=== PATIENT | male | born 1960 | race Caucasian/White ===

== ENCOUNTER 2018-09-29 06:06 | Day surgery (SDC) | payer BC ==
[2018-09-28 11:54] VITALS: BMI 31.8
[2018-09-29] MEDS ORDERED: DEXAMETHASONE SOD PHOSPHATE 4 MG/1 ML VIAL ONE (07:26)
[2018-09-29] MEDS ORDERED: PROPOFOL 20 ML ONE (07:26)
[2018-09-29] MEDS ORDERED: LIDOCAINE HCL/PF 2% SDV 5ML VIAL ONE (07:26)
[2018-09-29] MEDS ORDERED: SUCCINYLCHOLINE CHLORIDE 200 MG/10 ML VIAL ONE (07:26)
[2018-09-29] MEDS ORDERED: MIDAZOLAM HCL 2 MG/2 ML SINGLE DOSE VIAL ONE (07:26)
[2018-09-29] MEDS ORDERED: BUPIVACAINE HCL/PF 0.5% (5MG/ML) 10 ML VIAL ONE (07:34)
[2018-09-29 08:11] LABS: EPI CELLS 0.9 /HPF (0-5/HPF); URINE APPEARANCE CLEAR; URINE BACTERIA 0.7 /hpf (NEGATIVE); URINE BILIRUBIN NEGATIVE (NEGATIVE); URINE CASTS 2 /lpf (0-8); URINE COLOR YELLOW; URINE GLUCOSE (UA) NEGATIVE (NEGATIVE); URINE KETONE TRACE (NEGATIVE); URINE LEUK ESTERASE NEGATIVE (NEGATIVE); URINE NITRITE NEGATIVE (NEGATIVE); URINE PROTEIN 1+ (NEGATIVE); URINE RBC 4 /hpf (0-4); URINE UROBILINOGEN 0.2 mg/dL (0.2-1.0); URINE WBC 1 /hpf (0-5)
[2018-09-29] MEDS ORDERED: ceFAZolin SODIUM 1 GM VIAL ONE (08:19)
[2018-09-29] MEDS ORDERED: ceFAZolin 2 GRAM PREMIX BAG IVPB ONE (08:20)
[2018-09-29] MEDS ORDERED: ONDANSETRON 4 MG/2 ML VIAL IVPUSH PRN (08:21)
[2018-09-29] MEDS ORDERED: oxyCODONE HCL 5 MG TABLET PO PRN ×2 (08:21)
[2018-09-29] MEDS ORDERED: LACTATED RINGERS SOLUTION 1,000 ML IV SCH (08:30)
[2018-09-29] MEDS ORDERED: BUPIVACAINE HCL/PF 0.5% (5MG/ML) 10 ML VIAL IJ ONE (08:44)
--- NOTE | 2018-09-29 09:04 | HP ---
Satellite PMH - Chief Complaint Chief Complaint: left knee pain History of Present Illness: left knee medial and lateral meniscus tears, OA History Source: Patient Limitations to Obtaining History: No Limitations - Past Medical History Allergies/Adverse Reactions: Allergies Allergy/AdvReac Type Severity Reaction Status Date / Time dog dander Allergy "itchy Verified 09/29/18 06:54 throat" latex Allergy "hives" Verified 09/29/18 06:54 - Current Medications Current Medications: Home Medications Medication Instructions Recorded Candesartan Cilexetil [Atacand] 32 mg PO DAILY 09/28/18 Citalopram Hydrobromide 10 mg PO DAILY 09/28/18 [Citalopram HBr] Furosemide 20 mg PO DAILY 09/28/18 Naproxen Sodium [Aleve] 220 mg PO PRN PRN 09/28/18 Nifedipine [Nifedipine ER] 90 mg PO DAILY 09/28/18 Omeprazole 40 mg PO DAILY 09/28/18 Satellite Physical Exam - Physical Examination Vital Signs: Vital Signs Period Temp Pulse Resp BP Sys/[place] Pulse Ox Last 24 Hr 97.8 F 71 20 148/84 97 General Appearance: Well Nourished ENT: Clear Lung: Clear to auscultation Heart: Regular rate & rhythm Breasts: Soft Abdomen: Soft Extremities: No edema Satellite Impression/Plan - Impression/Plan Impression: left knee medial and lateral meniscus tears, OA Operative Procedure: left knee arhroscopy, partial medial and lateral meniscectomy, debridement chondroplasty Date to be Performed: 09/29/18
[2018-09-29] MEDS ORDERED: oxyCODONE HCL 5 MG TABLET ONE (10:28)
[2018-09-29 14:02] VITALS: BP 130/78; PULSE 70; TEMP 97.8
--- NOTE | 2018-09-30 17:14 | PATH ---
Surgical Pathology Report Patient Name: CHASE MENDES [place]. Rec. #: [id number] /Age/Gender: 1960 (Age: 58) / M Account: [id number] Location: [facility] Taken: 09/29/2018 Received: 09/29/2018 Reported: 09/30/2018 Physicians: Benigno Pizarro M.D. Specimen(s) Received SHAVINGS, LEFT KNEE Clinical History Tear left knee Final Diagnosis KNEE SHAVINGS, LEFT, ARTHROSCOPY: FRAGMENTS OF DENSE FIBROCONNECTIVE TISSUE, ADIPOSE TISSUE, AND REACTIVE SYNOVIUM. 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 Electronically Signed Anni Tidwell M.D. Gross Description Received in formalin, labeled "left knee shavings," is a 5.5 x 5.0 x 0.6 cm. aggregate of nguyen-yellow soft tissue fragments. A insurance follow up representative portion is submitted in one cassette. /09/29/2018 saudi09/29/2018
--- NOTE | 2018-10-12 10:51 | OP ---
DATE OF OPERATION: 09/29/2018 PREOPERATIVE DIAGNOSES: Left knee pain, medial and lateral meniscus tear, and osteoarthritis. POSTOPERATIVE DIAGNOSES: Left knee pain, medial and lateral meniscus tear, and osteoarthritis. PROCEDURE: Left knee arthroscopy, partial medial and lateral meniscectomy, debridement with chondroplasty. SURGEON: Benigno Pizarro MD SECTION MAINTAINER: None. ANESTHESIOLOGIST: James Rodriguez MD, with Alma Rosa Clay CRNA ANESTHESIA: LMA anesthesia with intraarticular injection of 20 mL of 0.5% Marcaine with 1% lidocaine mix. DRAINS: None. COMPLICATIONS: None. SPECIMEN: Arthroscopic shavings. BLOOD LOSS: None. BLOOD GIVEN: None. FLUID REPLACEMENT: 500 mL PlasmaLyte. INDICATION: This patient is a 58-year-old male with preoperative diagnosis of left knee pain, medial and lateral meniscus tear, and osteoarthritis, after understanding the potential risks, complications, alternatives, and benefits of surgical versus nonsurgical treatment, the patient elected to undergo this procedure. DESCRIPTION OF PROCEDURE: The patient was brought into the operating room, peripheral IV placed and IV sedation given. Two g of Ancef were given. LMA anesthesia was induced. Left lower extremity was placed into the C-clamp leg escalante with ample padding throughout. The left lower extremity was prepped and draped in a sterile fashion, elevated, and exsanguinated with Esmarch bandage, and tourniquet inflated to 275 mmHg. A superomedial outflow portal was established. A medial portal was established, and arthroscope was entered to the joint. Using a spinal needle under direct visualization, a medial portal was established, and a diagnostic arthroscopy was performed. The patient was seen to have a complex tear of the medial meniscus with some mild osteoarthritis at the medial femoral condyle and medial tibial plateau. Gentle debridement chondroplasty was performed, and a partial medial meniscectomy was performed with straight basket forceps and curved shaver. Photographs were taken before and after. The intercondylar notch looked good. The ACL looked good. It had the appropriate tension. The lateral compartment was seen to also have some grade 2/grade 3 changes of the lateral femoral condyle and lateral tibial plateau. There were small areas of grade 4 osteoarthritis at the lateral tibial plateau. The patient had a complex tear of the posterior horn and body of the lateral meniscus. This was debrided with the straight basket forceps and the curved shaver. After the partial lateral meniscectomy and debridement chondroplasty were performed, photographs were taken in the lateral compartment. Next, our attention was turned to the patellofemoral joint. Here the patient also had some osteoarthritis and excessive synovitis. This was debrided. After the partial synovectomy and debridement chondroplasty of the patellofemoral joint, the area was copiously irrigated and washed out. All excess saline was removed. The arthroscopy portal was closed with 3-0 nylon suture. Twenty mL of 0.5% Marcaine was introduced into the joint. The area was then washed and dried and covered with Xeroform, 4 x 4 gauze, Webril, and an Dorian bandage. Tourniquet was taken down after total tourniquet time of about 20 minutes. There was no complication during the case. Patient tolerated the procedure well and was brought to the ambulatory recovery room in stable condition. Jonel [id number]
== END 2018-09-29 13:30 | disposition home or self-care (01) ==
LOC: JASU-SURG 06:06
PROVIDERS: ATTEND Orthopaedic Surgery
PROC: 0SBD4ZZ Excision of Left Knee Joint, Percutaneous Endoscopic Approach (ICD-10-PCS; 2018-09-29)
PROC: 0SBD4ZZ Excision of Left Knee Joint, Percutaneous Endoscopic Approach (ICD-10-PCS; principal; 2018-09-29 08:00)
DX: S83.282A Other tear of lateral meniscus, current injury, left knee, initial encounter (principal); S83.242A Other tear of medial meniscus, current injury, left knee, initial encounter; X58.XXXA Exposure to other specified factors, initial encounter; Y93.9 Activity, unspecified; Y92.9 Unspecified place or not applicable; Y99.9 Unspecified external cause status; M17.12 Unilateral primary osteoarthritis, left knee; G47.30 Sleep apnea, unspecified; J45.909 Unspecified asthma, uncomplicated; I10 Essential (primary) hypertension; K21.9 Gastro-esophageal reflux disease without esophagitis
CPT/HCPCS: 81003; 88304-TC; 94760

== ENCOUNTER 2020-04-28 22:33 | Emergency (ER) | payer BC ==
[2020-04-28 22:42] VITALS: TEMP 97.8; BMI 29.1
[2020-04-28 23:41] LABS: BASO % 0.5 % (0-2.0); EOS % 2.3 % (0-4.5); HEMATOCRIT 43.7 % (35.4-49); HEMOGLOBIN 15.1 GM/dL (11.7-16.9); LYMPH % 27.1 % (8-40); MCH 32.5 pg (25.7-33.7); MCHC 34.4 g/dl (32.0-35.9); MEAN CELL VOLUME 94.5 fl (80-96); MEAN PLT VOLUME 9.6 fl (7.5-11.1); MONO % 6.5 % (3.8-10.2); NEUT % 63.6 % (42.8-82.8); PLATELET COUNT 148 K/MM3 (134-434); RBC 4.63 M/mm3 (4.00-5.60); RDW 12.9 % (11.9-15.9); WHITE BLOOD COUNT 8.2 K/mm3 (4.0-10.0)
[2020-04-28 23:45] LABS: PH,URINE 6.5 (5.0-8.0); URINE APPEARANCE CLEAR; URINE BILIRUBIN NEGATIVE (NEGATIVE); URINE COLOR YELLOW; URINE GLUCOSE (UA) NEGATIVE (NEGATIVE); URINE KETONE NEGATIVE (NEGATIVE); URINE LEUK ESTERASE NEGATIVE (NEGATIVE); URINE NITRITE NEGATIVE (NEGATIVE); URINE PROTEIN NEGATIVE (NEGATIVE)
[2020-04-29] LABS: CHLORIDE 110 mmol/L (98-107); POTASSIUM 3.9 mmol/L (3.5-5.1); SODIUM 142 mmol/L (136-145)
[2020-04-29 00:02] LABS: CALCIUM 8.6 mg/dL (8.5-10.1)
[2020-04-29 00:03] LABS: ALBUMIN 3.7 g/dl (3.4-5.0); ANION GAP 7 MMOL/L (8-16); BLOOD UREA NITROGEN 21.2 mg/dL (7-18); CO2 25 mmol/L (21-32); GLUCOSE,RANDOM 98 mg/dL (74-106)
[2020-04-29 00:06] LABS: CREATININE 0.7 mg/dL (0.55-1.3); SGOT/AST 12 U/L (15-37); SGPT/ALT 23 U/L (13-61)
[2020-04-29 00:07] LABS: BILIRUBIN,TOTAL 0.7 mg/dL (0.2-1)
[2020-04-29 00:08] LABS: TOT PROT 6.7 g/dl (6.4-8.2)
[2020-04-29 00:09] LABS: ALK PHOS 70 U/L (45-117)
[2020-04-29] MEDS ORDERED: cloNIDine HCL 0.1 MG TABLET PO ONE (00:16)
[2020-04-29] MEDS ORDERED: cloNIDine HCL 0.1 MG TABLET ONE (00:24)
[2020-04-29] MEDS ORDERED: NIFEdipine 10 MG CAPSULE (FP) PO ONE (01:59)
[2020-04-29] MEDS ORDERED: LOSARTAN POTASSIUM 25 MG TABLET PO ONE (02:00)
[2020-04-29 02:07] VITALS: BP 166/82; PULSE 67
== END 2020-04-29 02:12 | disposition home or self-care (01) ==
LOC: JER 22:33
DX: I16.0 Hypertensive urgency (principal); I10 Essential (primary) hypertension
CPT/HCPCS: 36415; 70450-TC; 80053; 81003; 84484; 85025; 93005; 93010; 99285-25; J0735

== ENCOUNTER 2021-03-06 07:32 | Day surgery (SDC) | payer BC ==
[2021-03-05 13:17] VITALS: BMI 28.5
[2021-03-06 09:38] VITALS: TEMP 97.8
[2021-03-06 09:53] VITALS: BP 128/84; PULSE 67
== END 2021-03-06 09:55 | disposition home or self-care (01) ==
LOC: FASU-ENDO 07:32 → EDBD 08:30 → FASU-ENDO 09:55
PROVIDERS: ATTEND Internal Medicine Gastroenterology
PROC: 3E0H8KZ Introduction of Other Diagnostic Substance into Lower GI, Via Natural or Artificial Opening Endoscopic (ICD-10-PCS; 2021-03-06)
PROC: 0DB98ZX Excision of Duodenum, Via Natural or Artificial Opening Endoscopic, Diagnostic (ICD-10-PCS; 2021-03-06)
PROC: 0DB78ZX Excision of Stomach, Pylorus, Via Natural or Artificial Opening Endoscopic, Diagnostic (ICD-10-PCS; 2021-03-06)
PROC: 0DBP8ZX Excision of Rectum, Via Natural or Artificial Opening Endoscopic, Diagnostic (ICD-10-PCS; principal; 2021-03-06 08:47)
DX: Z12.11 Encounter for screening for malignant neoplasm of colon (principal); K62.1 Rectal polyp; K21.9 Gastro-esophageal reflux disease without esophagitis; K29.70 Gastritis, unspecified, without bleeding; K57.30 Diverticulosis of large intestine without perforation or abscess without bleeding
CPT/HCPCS: 82962; 88305-TC; 88342-TC

== ENCOUNTER 2021-06-17 06:12 | Day surgery (SDC) | payer BC ==
[2021-06-09 16:56] VITALS: BMI 28.7
[2021-06-17] MEDS ORDERED: CEFAZOLIN 2 GM in DEXTROSE 5%-WATER - 50 ML IVPB ONE (06:27)
[2021-06-17] MEDS ORDERED: TRANEXAMIC ACID 1000 MG/10 ML VIAL IVPUSH ONE (06:27)
[2021-06-17] MEDS ORDERED: ceFAZolin SODIUM 1 GM VIAL ONE ×3 (07:07→23:17)
[2021-06-17] MEDS ORDERED: VANCOMYCIN 1,000 MG VIAL (RESTRICTED TO ID ONLY) ONE (07:07)
[2021-06-17] MEDS ORDERED: CELECOXIB 200 MG CAPSULE ONE (07:09)
[2021-06-17] MEDS: CELECOXIB 200 MG CAPSULE PO ONE (07:10)
[2021-06-17] MEDS ORDERED: SODIUM CHLORIDE 0.9% P/F 10 ML VIAL IJ ONE (07:24)
[2021-06-17] MEDS ORDERED: MIDAZOLAM HCL 2 MG/2 ML SINGLE DOSE VIAL ONE (07:24)
[2021-06-17] MEDS ORDERED: BUPIVACAINE LIPOSOME/PF (EXPAREL) 266 MG/20 ML VIAL ONE (07:24)
[2021-06-17] MEDS ORDERED: BUPIVACAINE HCL/PF 0.5% (5MG/ML) 10 ML VIAL ONE (07:24)
[2021-06-17] MEDS ORDERED: ONDANSETRON 4 MG/2 ML VIAL ONE (07:43)
[2021-06-17] MEDS ORDERED: DEXMEDETOMIDINE HCL 200 MCG/2 ML IVPB ONE (07:43)
[2021-06-17] MEDS ORDERED: PROPOFOL 20 ML ONE ×2 (07:52)
[2021-06-17] MEDS ORDERED: INSULIN (NOVOLOG) ASPART 100 UNITS/ML 10ML VIAL SQ PRN (07:57)
[2021-06-17] MEDS ORDERED: ONDANSETRON 4 MG/2 ML VIAL IVPUSH PRN (07:58)
[2021-06-17] MEDS ORDERED: MAG HYDROX/AL HYDROX/SIMETH 30 ML UNIT-DOSE CUP PO PRN (07:58)
[2021-06-17] MEDS ORDERED: LACTATED RINGERS SOLUTION 1,000 ML IV SCH ×2 (08:00→10:30)
[2021-06-17] MEDS ORDERED: CANDESARTAN CILEXETIL 32 MG PO SCH (10:00)
[2021-06-17] MEDS ORDERED: ACETAMINOPHEN INJECTION 100 ML IVPB ONE (10:26)
[2021-06-17] MEDS ORDERED: oxyCODONE HCL 5 MG TABLET PO PRN (10:27)
[2021-06-17] MEDS ORDERED: PROMETHAZINE HCL 25 MG/1 ML VIAL IVPUSH PRN (10:27)
[2021-06-17] MEDS: ACETAMINOPHEN 1000 MG/100 ML BAG IVPB ONE (10:34)
[2021-06-17] MEDS ORDERED: INSULIN (NOVOLOG) ASPART 100 UNITS/ML 10ML VIAL SQ ONE (11:03)
[2021-06-17] MEDS: oxyCODONE HCL 5 MG TABLET PO PRN ×4 (11:15→22:01)
[2021-06-17] MEDS ORDERED: DEXTROSE 5%-WATER - 50 ML IVPB ONE ×2 (16:19→23:17)
[2021-06-17] MEDS: GEMFIBROZIL 600 MG TABLET (FP) PO SCH (16:39)
[2021-06-17] MEDS: CEFAZOLIN 2 GM in DEXTROSE 5%-WATER - 50 ML IVPB SCH ×2 (16:39→23:25)
[2021-06-17] MEDS: INSULIN SLIDING SCALE (NOVOLOG) 1 VIAL SQ SCH ×2 (18:09→21:11)
[2021-06-17] MEDS: SENNOSIDES/DOCUSATE COMBO (SENNA PLUS) TABLET (UD) PO SCH (21:11)
[2021-06-17] MEDS ORDERED: FAMOTIDINE 20 MG TABLET PO SCH (22:00)
[2021-06-17] MEDS ORDERED: PATIENT'S OWN MEDICATION (NON-FORMULARY) (Famotidine [Pepcid] 40 MG Tablet) PO SCH (22:00)
[2021-06-18] MEDS: oxyCODONE HCL 5 MG TABLET PO PRN ×4 (00:53→11:12)
[2021-06-18] MEDS: INSULIN SLIDING SCALE (NOVOLOG) 1 VIAL SQ SCH ×3 (07:27→12:01)
[2021-06-18] MEDS ORDERED: ACETAMINOPHEN 1000 MG/100 ML BAG IVPB PRN (07:49)
[2021-06-18] MEDS ORDERED: KETOROLAC TROMETHAMINE 30 MG/1 ML VIAL IVPUSH PRN (07:50)
[2021-06-18] MEDS ORDERED: ASPIRIN 325 MG TABLET PO SCH (08:00)
[2021-06-18] MEDS ORDERED: oxyCODONE HCL 5 MG TABLET PO ONE (08:15)
[2021-06-18] MEDS: ACETAMINOPHEN 1000 MG/100 ML BAG IVPB ONE (08:16)
[2021-06-18] MEDS: CELECOXIB 200 MG CAPSULE PO ONE (08:18)
[2021-06-18] MEDS: SENNOSIDES/DOCUSATE COMBO (SENNA PLUS) TABLET (UD) PO SCH ×3 (08:18→09:29)
[2021-06-18] MEDS: AMITRIPTYLINE HCL 10 MG TABLET PO SCH ×2 (08:18→09:27)
[2021-06-18] MEDS: MULTIVITAMINS (DAILY MVI) TABLET (FP) PO SCH ×2 (08:18→09:27)
[2021-06-18] MEDS: GEMFIBROZIL 600 MG TABLET (FP) PO SCH (08:25)
[2021-06-18 09:27] LABS: HEMATOCRIT 34.9 % (35.4-49); HEMOGLOBIN 11.7 GM/dL (11.7-16.9); MCH 31.4 pg (25.7-33.7); MCHC 33.5 g/dl (32.0-35.9); MEAN CELL VOLUME 93.6 fl (80-96); MEAN PLT VOLUME 9.3 fl (7.5-11.1); PLATELET COUNT 171 10^3/uL (134-434); RBC 3.73 M/mm3 (4.00-5.60); RDW 12.6 % (11.9-15.9)
[2021-06-18] MEDS ORDERED: NIFEdipine E.R. 90 MG TABLET PO SCH (10:00)
[2021-06-18] MEDS ORDERED: VALSARTAN 160 MG TABLET PO SCH (10:00)
[2021-06-18 14:02] VITALS: BP 128/69; PULSE 89; TEMP 99
== END 2021-06-18 15:36 | disposition home health service (06) ==
LOC: FASUSAT 06:12 → FM/S 06:27 → EDSTATUS 08:00 → FASUSAT 06-18 15:36
PROVIDERS: ATTEND Orthopaedic Surgery
PROC: 8E0YXBZ Computer Assisted Procedure of Lower Extremity (ICD-10-PCS; 2021-06-17)
PROC: 8E0Y0CZ Robotic Assisted Procedure of Lower Extremity, Open Approach (ICD-10-PCS; 2021-06-17)
PROC: 0SRC0J9 Replacement of Right Knee Joint with Synthetic Substitute, Cemented, Open Approach (ICD-10-PCS; principal; 2021-06-17 08:33)
DX: M17.11 Unilateral primary osteoarthritis, right knee (principal)
CPT/HCPCS: 20985; 27447; C1776; S2900; 36415; 73560-TC-RT-FY; 82962; 85027; 94760; 97010-GP; 97116-GP; 97163-GP

== ENCOUNTER 2022-06-16 07:24 | Day surgery (SDC) | payer BC ==
[2022-06-10 13:51] VITALS: BMI 26.4
[2022-06-16] MEDS ORDERED: CEFAZOLIN 2 GM in DEXTROSE 5%-WATER - 50 ML IVPB ONE (08:03)
[2022-06-16] MEDS ORDERED: CELECOXIB 200 MG CAPSULE PO ONE (08:03)
[2022-06-16] MEDS ORDERED: TRANEXAMIC ACID 1000 MG/10 ML VIAL IVPUSH ONE (08:03)
[2022-06-16] MEDS ORDERED: BUPIVACAINE HCL/PF 0.5% (5MG/ML) 10 ML VIAL ONE (09:11)
[2022-06-16] MEDS ORDERED: MIDAZOLAM HCL 2 MG/2 ML SINGLE DOSE VIAL ONE ×2 (09:11→09:59)
[2022-06-16] MEDS ORDERED: BUPIVACAINE LIPOSOME/PF (EXPAREL) 266 MG/20 ML VIAL ONE (09:11)
[2022-06-16] MEDS ORDERED: FAMOTIDINE 20 MG TABLET PO PRN (09:44)
[2022-06-16] MEDS ORDERED: LACTATED RINGERS SOLUTION 1,000 ML IV SCH ×2 (09:45→12:30)
[2022-06-16] MEDS ORDERED: CANDESARTAN CILEXETIL 32 MG PO SCH (10:00)
[2022-06-16] MEDS ORDERED: ceFAZolin SODIUM 1 GM VIAL ONE ×2 (10:29→10:36)
[2022-06-16] MEDS ORDERED: KETOROLAC TROMETHAMINE 30 MG/1 ML VIAL ONE ×2 (10:35→12:50)
[2022-06-16] MEDS ORDERED: hydrALAZINE HCL 20 MG/ML VIAL ONE (10:35)
[2022-06-16] MEDS ORDERED: VANCOMYCIN 1,000 MG VIAL (RESTRICTED TO ID ONLY) ONE (10:36)
[2022-06-16] MEDS ORDERED: PROPOFOL 40 ML ONE (10:36)
[2022-06-16] MEDS ORDERED: DEXAMETHASONE SOD PHOSPHATE 4 MG/1 ML VIAL ONE (10:44)
[2022-06-16] MEDS ORDERED: PROPOFOL 20 ML ONE ×2 (11:18→11:55)
[2022-06-16] MEDS ORDERED: HYDROmorphone HCL/PF 1 MG/ML VIAL ONE (12:08)
[2022-06-16] MEDS ORDERED: FENTANYL CITRATE/PF 50 MCG/ML VIAL ONE ×3 (12:21→13:23)
[2022-06-16] MEDS ORDERED: ACETAMINOPHEN 1000 MG/100 ML BAG IVPB ONE (12:25)
[2022-06-16] MEDS ORDERED: ONDANSETRON 4 MG/2 ML VIAL IVPUSH PRN (12:25)
[2022-06-16] MEDS ORDERED: HYDROmorphone HCL 2 MG TABLET PO PRN (12:25)
[2022-06-16] MEDS ORDERED: ACETAMINOPHEN INJECTION 100 ML IVPB ONE (12:50)
[2022-06-16] MEDS ORDERED: ONDANSETRON 4 MG/2 ML VIAL ONE (12:55)
[2022-06-16] MEDS: ONDANSETRON 4 MG/2 ML VIAL IVPUSH PRN (12:58)
[2022-06-16] MEDS ORDERED: HYDROmorphone HCL 2 MG TABLET ONE (13:35)
[2022-06-16] MEDS: HYDROmorphone HCL CARPU-JECT 2 MG/1 ML DISP.SYRIN IVPB PRN ×2 (16:23→22:27)
[2022-06-16] MEDS ORDERED: KETOROLAC TROMETHAMINE 30 MG/1 ML VIAL IVPUSH SCH (18:00)
[2022-06-16] MEDS: GEMFIBROZIL 600 MG TABLET (FP) PO SCH (18:34)
[2022-06-16] MEDS: CEFAZOLIN SODIUM 2 GM in DEXTROSE 5%-WATER 100 ML IVPB SCH (18:34)
[2022-06-16] MEDS: SENNOSIDES/DOCUSATE COMBO (SENNA PLUS) TABLET (UD) PO SCH ×2 (21:30→21:36)
[2022-06-16] MEDS: PENTOXIFYLLINE 400 MG TABLET.ER PO SCH ×2 (21:31→21:37)
[2022-06-16] MEDS: BUDESONIDE/FORMETEROL FUMARATE 80/4.5 mcg INHALER IH SCH (21:34)
[2022-06-16] MEDS: ACETAMINOPHEN 500 MG TABLET (FP) PO SCH (21:34)
[2022-06-16] MEDS: NIFEdipine E.R. 90 MG TABLET PO SCH (21:36)
[2022-06-16] MEDS: MULTIVITAMINS (DAILY MVI) TABLET (FP) PO SCH (21:36)
[2022-06-16] MEDS ORDERED: NORTRIPTYLINE HCL 25 MG CAPSULE PO SCH (22:00)
[2022-06-17] MEDS: CEFAZOLIN SODIUM 2 GM in DEXTROSE 5%-WATER 100 ML IVPB SCH (01:51)
[2022-06-17] MEDS: HYDROmorphone HCl 2 MG/ML VIAL IVPB PRN ×2 (03:08→13:31)
[2022-06-17] MEDS: ACETAMINOPHEN 500 MG TABLET (FP) PO SCH ×3 (03:12→15:10)
[2022-06-17] MEDS: KETOROLAC TROMETHAMINE 30 MG/1 ML VIAL IVPUSH PRN ×2 (04:21→09:37)
[2022-06-17] MEDS: ONDANSETRON 4 MG/2 ML VIAL IVPUSH PRN (05:43)
[2022-06-17] MEDS: GEMFIBROZIL 600 MG TABLET (FP) PO SCH (07:06)
[2022-06-17] MEDS: PENTOXIFYLLINE 400 MG TABLET.ER PO SCH ×2 (07:06→13:31)
[2022-06-17 07:54] LABS: HEMATOCRIT 31.9 % (35.4-49); HEMOGLOBIN 11.1 G/dL (11.7-16.9); MCH 33.3 pg (25.7-33.7); MCHC 34.7 g/dl (32.0-35.9); MEAN CELL VOLUME 95.9 fl (80-96); MEAN PLT VOLUME 8.7 fl (7.5-11.1); PLATELET COUNT 140.4 10^3/uL (134-434); RBC 3.33 10^6/uL (4.00-5.60); RDW 13.3 % (11.9-15.9); WHITE BLOOD COUNT 9.8 10^3/uL (4.0-10.8)
[2022-06-17] MEDS: SENNOSIDES/DOCUSATE COMBO (SENNA PLUS) TABLET (UD) PO SCH (09:35)
[2022-06-17] MEDS: MULTIVITAMINS (DAILY MVI) TABLET (FP) PO SCH (09:35)
[2022-06-17] MEDS: NIFEdipine E.R. 90 MG TABLET PO SCH (09:35)
[2022-06-17] MEDS: BUDESONIDE/FORMETEROL FUMARATE 80/4.5 mcg INHALER IH SCH (09:36)
[2022-06-17] MEDS ORDERED: VALSARTAN 160 MG TABLET PO SCH (10:00)
[2022-06-17] MEDS ORDERED: ENOXAPARIN NA (PORCINE) 40 MG/0.4 ML DISP.SYRIN SQ SCH (10:00)
[2022-06-17 14:10] VITALS: BP 106/48; PULSE 89; RESP 16; TEMP 98.4
== END 2022-06-17 16:05 | disposition home health service (06) ==
LOC: FASUSAT 07:24 → FM/S 14:33 → FASUSAT 06-17 16:05
PROVIDERS: ATTEND Orthopaedic Surgery
PROC: 8E0Y0CZ Robotic Assisted Procedure of Lower Extremity, Open Approach (ICD-10-PCS; 2022-06-16)
PROC: 0SRC0J9 Replacement of Right Knee Joint with Synthetic Substitute, Cemented, Open Approach (ICD-10-PCS; principal; 2022-06-16 10:36)
DX: M17.12 Unilateral primary osteoarthritis, left knee (principal); I10 Essential (primary) hypertension; J45.909 Unspecified asthma, uncomplicated
CPT/HCPCS: 20985; 27447; C1776; S2900; 36415; 73560-TC-LT-FY; 85027; 94760; 97010-GP; 97116-GP; 97162-GP; C1713

== ENCOUNTER 2023-09-16 07:21 | Day surgery (SDC) | payer BC ==
[2023-09-09 15:04] VITALS: BMI 24.4
[2023-09-16 10:05] VITALS: TEMP 98
[2023-09-16 10:08] VITALS: BP 124/78; PULSE 68; RESP 18
== END 2023-09-16 10:31 | disposition home or self-care (01) ==
LOC: FASU-ENDO 07:21
PROVIDERS: ATTEND Internal Medicine Gastroenterology
PROC: 0DBL8ZX Excision of Transverse Colon, Via Natural or Artificial Opening Endoscopic, Diagnostic (ICD-10-PCS; principal; 2023-09-16 09:33)
DX: Z12.11 Encounter for screening for malignant neoplasm of colon (principal); D12.3 Benign neoplasm of transverse colon; K57.30 Diverticulosis of large intestine without perforation or abscess without bleeding
CPT/HCPCS: 88305-TC